=== PATIENT | female | born 1940 | race Hispanic/Latino ===

== ENCOUNTER → 2017-11-20 | Outpatient (CLI) | payer OTHER | LOC: MAMMO 15:11 | PROVIDERS: ATTEND Internal Medicine | DX: Z12.31 Encounter for screening mammogram for malignant neoplasm of breast (principal) | CPT/HCPCS: 77067 ==

== ENCOUNTER → 2018-11-11 | Outpatient (CLI) | payer MEDICARE, OTHER ==
--- NOTE | 2018-11-12 09:42 | Diagnostic Imaging Report ---
DEXA scan History: Post menopausal patient, screening for osteoporosis Comparison: none Findings: Lumbar spine: T score: -0.3 Z score: 2.3 Left Hip: T score: -1.1 Z score: 0.9 Impression: The patient is considered osteopenic by WHO criteria. Signed by: Denny Weaver MD on 11/12/2018 7:53 AM
--- NOTE | 2018-11-12 16:12 | Diagnostic Imaging Report ---
#[id number] - [id number] #BILATERAL DIGITAL SCREENING MAMMOGRAM WITH CAD: 11/11/2018 CLINICAL: Routine screening. Comparison is made to exams dated: 11/20/2017 mammogram and 10/04/2016 mammogram - [facility]. There are scattered fibroglandular elements in both breasts. Current study was also evaluated with a Computer Aided Detection (CAD) system. There are benign lymph nodes in both breasts. No significant masses, calcifications, or other findings are seen in either breast. There has been no significant interval change. IMPRESSION: BENIGN There is no mammographic evidence of malignancy. A 1 year screening mammogram is recommended. The patient will be notified by letter of the results. Denny simental/erica:11/12/2018 10:57:19 Yield Loss Inspector: Jocelyn OCHOA)(Kristian), [facility] letter sent: Normal Exam Mammogram BI-RADS: 2 Benign
== END ==
LOC: EDBD → MAMMO 10:35
PROVIDERS: ATTEND Internal Medicine
DX: Z12.31 Encounter for screening mammogram for malignant neoplasm of breast (principal); M89.9 Disorder of bone, unspecified; I73.9 Peripheral vascular disease, unspecified
CPT/HCPCS: 77067; 77080; 93925

== ENCOUNTER → 2019-09-05 | Outpatient (CLI) | payer MEDICARE, OTHER ==
--- NOTE | 2019-09-05 13:34 | Diagnostic Imaging Report ---
EXAM: Renal Ultrasound INDICATION: ^CHRONIC KIDNEY DISEASE COMPARISON: None TECHNIQUE: Transverse and longitudinal images of the kidneys and bladder were obtained. FINDINGS: Right Kidney: Length: 10.5 cm Appearance: Normal echogenicity. Collecting system: No hydronephrosis Stones: None Cyst/Mass: None Left Kidney: Length: 11.1 cm Appearance: Normal echogenicity. Collecting system: No hydronephrosis Stones: None Cyst/Mass: None Bladder: No mass or calculi. Bilateral ureteral jets visualized. IMPRESSION: No hydronephrosis or renal calculi. Signed by: Cyril Benites MD on 09/05/2019 1:31 PM
== END ==
LOC: US 12:16
PROVIDERS: ATTEND Internal Medicine
DX: N18.9 Chronic kidney disease, unspecified (principal)
CPT/HCPCS: 76770

== ENCOUNTER → 2019-11-14 | Outpatient (CLI) | payer MEDICARE | LOC: MAMMO 12:58 | PROVIDERS: ATTEND Internal Medicine | DX: Z12.31 Encounter for screening mammogram for malignant neoplasm of breast (principal) | CPT/HCPCS: 77067 ==

== ENCOUNTER 2020-04-02 11:43 | Emergency (ER) | payer MEDICARE ==
[~2020-04-02] VITALS: Ht 162.6 cm; Wt 105.2 kg
[2020-04-02] MEDS ORDERED: ACETAMINOPHEN 325 MG TAB PO ONE (12:15)
[2020-04-02] MEDS ORDERED: HYDROCODONE/APAP 5MG-325MG TAB PO ONE (12:15)
== END 2020-04-02 14:05 | disposition home or self-care (01) ==
LOC: ER 12:05
DX: S80.02XA Contusion of left knee, initial encounter (principal); W01.198A Fall on same level from slipping, tripping and stumbling with subsequent striking against other object, initial encounter; Y93.01 Activity, walking, marching and hiking; I10 Essential (primary) hypertension; E03.9 Hypothyroidism, unspecified; J45.909 Unspecified asthma, uncomplicated
CPT/HCPCS: 99283

== ENCOUNTER → 2021-01-31 | Outpatient (CLI) | payer MEDICARE | LOC: MAMMO 12:25 | PROVIDERS: ATTEND Internal Medicine | DX: Z12.31 Encounter for screening mammogram for malignant neoplasm of breast (principal) | CPT/HCPCS: 77067 ==

== ENCOUNTER 2022-04-25 12:09 | Emergency (ER) | payer MEDICARE ==
[2022-04-25] MEDS ORDERED: CEFDINIR300 MG PO (13:21)
[2022-04-25] MEDS ORDERED: BROMPHENIR-PSE118 ML PO (13:21)
== END 2022-04-25 14:04 | disposition home or self-care (01) ==
LOC: FSED 12:36
DX: R05.9 Cough, unspecified (principal); J20.9 Acute bronchitis, unspecified; I10 Essential (primary) hypertension; E03.9 Hypothyroidism, unspecified; J45.909 Unspecified asthma, uncomplicated
CPT/HCPCS: 83518; 87400; 99282